=== PATIENT | female | born 1955 | race Caucasian/White ===

== ENCOUNTER 2016-08-29 19:00 | Emergency (ER) | payer BC ==
[2016-08-29] MEDS ORDERED: IOPAMIDOL 300 (61%) 150 ML VIAL IV ONE (19:01)
[2016-08-29] MEDS ORDERED: SODIUM CHLORIDE 0.9% 1,000 ML ONE (20:00)
[2016-08-29 20:33] LABS: ABSOLUTE NEUTROPHIL COUNT 2.7 K/mm3 (1.8-7.7); BASO % 0.4 % (0.2-1.0); EOS # 0.2 (0.0-0.5); EOS % 2.3 % (0.9-2.9); HEMATOCRIT 43.7 % (37.0-47.0); HEMOGLOBIN 14.6 gm/l (12.0-16.0); IMM NEUT% 0.3 % (0-1); LYMPH # 4.3 (1.0-4.8); MEAN CELL VOLUME 91.2 fl (81.0-99.0); MEAN CORPUSCULAR HEMOGLOBIN 30.5 pg (27.0-31.0); MEAN CORPUSCULAR HGB CONC 33.4 g/dl (33.0-37.0); MEAN PLATELET VOLUME 11.4 fl (7.4-10.4); MONO # 0.6 (0.0-0.8); MONO % 7.7 % (4-12); NEUT % 34.3 % (43-75); PLATELET COUNT 64 K/mm3 (130-400); RED CELL DISTRIBUTION WIDTH 13.8 % (11.5-14.5)
[2016-08-29 20:50] LABS: ALB/GLOB RATIO 1.3 (>1.0); ALBUMIN 4.2 gm/dL (3.5-5.7); CALCIUM 9.6 mg/dL (8.6-10.3)
[2016-08-29] MEDS ORDERED: ALBUTEROL/IPRATROPIUM 2.5/0.5 MG 3 ML/EACH DOSE ONE (21:57)
--- NOTE | 2016-08-30 08:04 | CT ---
CT ABDOMEN AND PELVIS WITH CONTRAST HISTORY: Diffuse abdominal pain x2 weeks. TECHNIQUE: Following intravenous administration of 125 mL Isovue-300, contiguous axial images were acquired from the lung bases to the ischial tuberosities. Oral contrast was not administered. COMPARISON:None. FINDINGS: LUNG BASES: No gross airspace consolidation or pleural effusion. LIVER: Diffuse fatty infiltration with some diaphragmatic low-attenuation lesion measuring 7 mm in size. SPLEEN: No focal lesion. STOMACH: Surgical clips seen along the anterior aspect of the stomach. PANCREAS: No focal lesion. ADRENAL GLANDS: No mass effect. KIDNEYS: Left renal cyst, 1.4 cm in size. GALLBLADDER: Present. BOWEL: Moderate fecal loading. Limited assessment of the distal colon due to decompression. No abnormal small bowel dilatation. APPENDIX: Normal gas-filled appendix. PELVIC ORGANS: Status post hysterectomy, no adnexal mass effect. FREE FLUID: No gross free fluid identified. ANTERIOR ABDOMINAL WALL: Dystrophic calcifications midline seen above the level of the umbilicus and above the pubic symphysis. ABDOMINOPELVIC LYMPH NODES: No abnormally enlarged lymph nodes identified. ABDOMINAL AORTA: Normal caliber. OSSEOUS STRUCTURES: Early changes of lumbar spondylosis. Irregular high attenuation foci of the femoral heads worrisome for bilateral osteonecrosis. IMPRESSION: 1. Noninflammatory, nonobstructive appearance of bowel with a normal appendix. 2. Status post hysterectomy with no adnexal mass effect or free fluid. Dystrophic calcifications associated with prior abdominal wall incision. 3. Fatty liver. Small cystic lesions of the liver and left kidney. 4. Bilateral femoral head hypoattenuation worrisome for osteonecrosis. Preliminary report relayed to the Emergency Medicine medical service by Dr. Villaseñor on 08/29/2016 at 2144 hours.
== END 2016-08-29 22:07 | disposition home or self-care (01) ==
LOC: ED 19:00
DX: R10.9 Unspecified abdominal pain (principal); R31.9 Hematuria, unspecified; R11.0 Nausea; Z85.42 Personal history of malignant neoplasm of other parts of uterus
CPT/HCPCS: 83605; 83690; 82150; 80156; 85025; 80053; 84484; 74177; 99284 ×2; 96360; 96361; J7030; Q9967